=== PATIENT | female | born 1970 ===

== ENCOUNTER 2017-04-20 13:04 | Emergency (ER) | payer OTHER ==
[2017-04-20 13:05] VITALS: BMI 27.8
[2017-04-20 13:22] VITALS: TEMP 98.6
--- NOTE | 2017-04-20 14:03 | ED PDOC ---
Arrival/HPI - General Historian: Patient - History of Present Illness Time/Duration: 1 week Symptom Onset: Gradual Symptom Course: Unchanged Severity Level: 3 Activities at Onset: Rest Context: Home <Jalen Zhang - Last Filed: 04/20/17 14:47> <MichellemagaliejerardoVeronica Melisa - Last Filed: 04/20/17 15:53> - General Chief Complaint: Anxiety Time Seen by Provider: 04/20/17 13:37 - History of Present Illness Narrative History of Present Illness (Text): 04/20/17 13:59 This is a 46 year old female with a past medical history of bulging discs who presents to the [facility] complaining of "hot flashes" for one week. The patient states that this is the first time experiencing this sensation. She reports starting to sweat under both breasts, both arms, and on her face. She denies any precipitating factors prior to the events. She reports feeling better after placing herself in front of the air conditioner. She denies any chest pain, shortness of breath, nausea, vomiting, fevers, chills , lightheadedness, dizziness, vaginal bleeding or any other complaints. (Jalen Zhang) Past Medical History - Provider Review Nursing Documentation Reviewed: Yes - Infectious Disease Hx of Infectious Diseases: None - Tetanus Immunization Tetanus Immunization: Unknown - Reproductive Menopause: No - Cardiac Hx Cardiac Disorders: No - Pulmonary Hx Respiratory Disorders: Yes Hx Asthma: Yes - Neurological Hx Neurological Disorder: No - HEENT Hx HEENT Disorder: No - Renal Hx Renal Disorder: No - Endocrine/Metabolic Hx Endocrine Disorders: No - Hematological/Oncological Hx Blood Disorders: No - Integumentary Hx Dermatological Disorder: No - Musculoskeletal/Rheumatological Hx Arthritis: Yes Hx Herniated Disk: Yes - Gastrointestinal Hx Gastrointestinal Disorders: No - Genitourinary/Gynecological Hx Genitourinary Disorders: No - Psychiatric Hx Anxiety: No Hx Bipolar Disorder: No Hx Depression: No Hx Post Traumatic Stress Disorder: No Hx Schizophrenia: No Hx Substance Use: Yes (Marijuana, cocaine) - Surgical History Hx Section: Yes Hx Hysterectomy: Yes - Anesthesia Hx Anesthesia: Yes Hx Anesthesia Reactions: No Hx Malignant Hyperthermia: No - Suicidal Assessment Feels Threatened In Home Enviroment: No <Jalen Zhang - Last Filed: 04/20/17 14:47> Family/Social History - Physician Review Nursing Documentation Reviewed: Yes Family/Social History: Hypertension Smoking Status: medical Hx Alcohol Use: Yes Hx Substance Use: Yes (Marijuana, cocaine) Substance used: cocaine Hx Substance Use Treatment: No <Jalen Zhang - Last Filed: 04/20/17 14:47> Allergies/Home Meds <Jalen Zhnag - Last Filed: 04/20/17 14:47> <RamónVeronica Melisa - Last Filed: 04/20/17 15:53> Allergies/Adverse Reactions: Allergies No Known Allergies Allergy (Verified 04/20/17 13:17) Home Medications: Home Meds Medication Instructions Recorded Confirmed Hydrocodone/Acetaminophen [Lortab 1 tab PO Q6 PRN 09/19/15 04/20/17 10/325 325 mg-10 mg] Morphine [Morphine Extended 30 mg PO TID 04/20/17 04/20/17 Release Tab] Review of Systems - Review of Systems Constitutional: Normal, Other (hot flashes). absent: Weight Change, Fevers Eyes: Normal. absent: Photophobia, Eye Pain ENT: Normal. absent: Hearing Changes, Tinnitus, Epistaxis Respiratory: Normal. absent: SOB, Cough, Sputum, Wheezing Cardiovascular: Normal. absent: Chest Pain, Palpitations, Syncope Gastrointestinal: Normal. absent: Abdominal Pain, Nausea, Vomiting, Hematochezia Genitourinary Female: Normal. absent: Urine Output Changes, Vaginal Bleeding, Vaginal Discharge Musculoskeletal: Normal. absent: Back Pain Neurological: Normal. absent: Headache, Dizziness, Seizure Endocrine: Other (reports hot flashes for 1 week.). absent: Polyuria, Polydipsia Hemo/Lymphatic: Normal. absent: Easy Bleeding, Easy Bruising <Jalen Zhang - Last Filed: 04/20/17 14:47> Physical Exam Vital Signs Reviewed: Yes Temperature: Afebrile Blood Pressure: Normal Pulse: Regular Respiratory Rate: Normal Appearance: Positive for: Well-Appearing, Non-Toxic, Other (slightly anxious at bedside) Pain Distress: None Mental Status: Positive for: Alert and Oriented X 3 - Systems Exam Head: Present: Atraumatic, Normocephalic Pupils: Present: PERRL Extroacular Muscles: Present: EOMI Conjunctiva: Present: Normal Mouth: Present: Moist Mucous Membranes Neck: Present: Normal Range of Motion. No: JVD, Lymphadenopathy Respiratory/Chest: Present: Clear to Auscultation, Good Air Exchange. No: Respiratory Distress, Accessory Muscle Use, Wheezes Cardiovascular: Present: Regular Rate and Rhythm, Normal S1, S2. No: Tachycardic, Bradycardic Abdomen: Present: Normal Bowel Sounds. No: Tenderness, Distention, Peritoneal Signs, Rebound, Guarding Upper Extremity: Present: Normal Inspection. No: Cyanosis, Edema, Swelling, Erythema Lower Extremity: Present: Normal Inspection. No: Edema Neurological: Present: CN II-XII Intact, Speech Normal Skin: Present: Dry, Normal Color. No: Warm, Rashes, Cold, Pale Lymphatic: No: Cervical Adenopathy Psychiatric: Present: Alert, Oriented x 3, Normal Insight, Anxious <Jalen Zhang - Last Filed: 04/20/17 14:47> Medical Decision Making <Jalen Zhang - Last Filed: 04/20/17 14:47> <Veronica Melgar - Last Filed: 04/20/17 15:53> ED Course and Treatment: 04/20/17 14:08 This is a 49 year old female with a past medical history of bulging discs who presents to the [facility] complaining of hot flashes for one week. The patient was ordered lab work including: cbc, cmp, thyroid function tests. Patient will be re-evaluated after lab work returns. Patients states she would have gone to her PMD Dr. Frost in [place] but he is out of town until Wednesday. Patient has an appointment with Dr. Frost on WednesdayApril 27 for her hot flashes. (Jalen Zhang) A 46 year old female with "hot flashes" for one week. In agreement with resident note, which includes further HPI details. Patient was seen and evaluated with resident, came up with plan and treatment together. 04/20/17 15:52 CBC and CMP WNL. Thyroid studies WNL. Patient has PMD follow-up (Veronica eMlgar) - Lab Interpretations Lab Results: 04/20/17 14:17 04/20/17 14:17 Lab Results 04/20/17 14:17: Thyroxine (T4) 9.4, Total T3 1.41, TSH 3rd Generation 2.74 04/20/17 14:17: Sodium 141, Potassium 3.6, Chloride 104, Carbon Dioxide 28, Anion Gap 13, BUN 14, Creatinine 0.7, Est GFR ( Amer) > 60, Est GFR (Non- Af Amer) > 60, Random Glucose 89, Calcium 8.9, Total Bilirubin 0.5, AST 37, ALT 46, Alkaline Phosphatase 67, Total Protein 7.3, Albumin 4.2, Globulin 3.0, Albumin/Globulin Ratio 1.4 04/20/17 14:17: WBC 6.5 D, RBC 4.52, Hgb 13.3, Hct 38.5, MCV 85.2, MCH 29.4, MCHC 34.5, RDW 13.4, Plt Count 215, MPV 9.6, Gran % 62.7, Lymph % (Auto) 28.6, Hawkins % (Auto) 7.8 H, Eos % (Auto) 0.6 L, Baso % (Auto) 0.3, Gran # 4.10, Lymph # 1.9, Hawkins # 0.5, Eos # 0.0, Baso # 0.02 <Jalen Zhang - Last Filed: 04/20/17 14:47> - PA / OBSTETRICS GYN / Resident Statement / has reviewed & agrees with the documentation as recorded. MD/ has examined the patient and agrees with the treatment plan. - Scribe Statement The provider has reviewed the documentation as recorded by the Scribe <Veronica Melgar - Last Filed: 04/20/17 15:53> - Scribe Statement Joanne Sexton Provider Scribe Attestation: All medical record entries made by the Scribe were at my direction and personally dictated by me. I have reviewed the chart and agree that the record accurately reflects my personal performance of the history, physical exam, medical decision making, and the department course for this patient. I have also personally directed, reviewed, and agree with the discharge instructions and disposition. (Veronica Melgar) Disposition/Present on Arrival - Present on Arrival Any Indicators Present on Arrival: No History of DVT/PE: No History of Uncontrolled Diabetes: No Urinary Catheter: No History of Decub. Ulcer: No History Surgical Site Infection Following: None <Jalen Zhang - Last Filed: 04/20/17 14:47> - Present on Arrival Any Indicators Present on Arrival: No - Disposition Have Diagnosis and Disposition been Completed?: Yes Disposition Time: 15:53 Patient Plan: Discharge <Veronica Melgar - Last Filed: 04/20/17 15:53> - Disposition Diagnosis: Hot flashes Disposition: HOME/ ROUTINE Patient Problems: Current Active Problems Problem Status Onset Hot flashes Acute Condition: GOOD Additional Instructions: Follow up with Dr. Brown as scheduled. Return to ED if condition worsens. Referrals: Trudi Brown MD [Primary Care Provider] - Follow up with primary Forms: [employer] (Bengali)
[2017-04-20 14:23] LABS: BASO # 0.02 K/mm3 (0.0-2.0); BASO % 0.3 % (0.0-3.0); EOS % 0.6 % (1.5-5.0); GRAN % 62.7 % (50.0-68.0); HEMOGLOBIN 13.3 g/dL (12.0-16.0); LYMPH # 1.9 (1.2-3.4); LYMPH % 28.6 % (22.0-35.0); MEAN CELL VOLUME 85.2 fl (80.0-105.0); MEAN CORPUSCULAR HEMOGLOBIN 29.4 pg (25.0-35.0); MEAN CORPUSCULAR HGB CONC 34.5 g/dl (31.0-37.0); MEAN PLATELET VOLUME 9.6 fl (7.0-11.0); MONO # 0.5 (0.1-0.6); MONO % 7.8 % (1.0-6.0); PLATELET COUNT 215 10^3/uL (120.0-450.0); RBC 4.52 10^6/uL (3.5-6.1); RED CELL DISTRIBUTION WIDTH 13.4 % (11.5-14.5); WHITE BLOOD COUNT 6.5 10^3/ul (4.5-11.0)
[2017-04-20 14:39] LABS: ALB/GLOB RATIO 1.4 (1.1-1.8); ALBUMIN 4.2 g/dL (3.0-4.8); ALT/SGPT 46 U/L (7-56); AST/SGOT 37 U/L (15-39); BLOOD UREA NITROGEN 14 mg/dL (7-21); CALCIUM 8.9 mg/dL (8.4-10.5); GFR AFRICAN-AMERICAN > 60; GFR NON-AFRICAN AMERICAN > 60
[2017-04-20 15:36] LABS: T4 9.4 ug/dL (5.5-11.0)
[2017-04-20 15:49] LABS: T3 1.41 ng/mL (0.97-1.69)
[2017-04-20 16:00] VITALS: BP 142/52; PULSE 71; RESP 18; O2SAT 98
== END 2017-04-20 16:01 | disposition home or self-care (01) ==
LOC: ED 13:04
DX: N95.1 Menopausal and female climacteric states (principal)

== ENCOUNTER 2018-04-06 08:40 | Emergency (ER) | payer OTHER ==
[2018-04-06 08:41] VITALS: BMI 27.8
[2018-04-06 08:57] VITALS: RESP 18
[2018-04-06] MEDS ORDERED: Amoxicillin-Clav 875-125 mg Tab PO STA (09:29)
--- NOTE | 2018-04-06 09:34 | ED PDOC ---
Arrival/HPI - General Chief Complaint: ENT Problem Time Seen by Provider: 04/06/18 09:28 Historian: Patient - History of Present Illness Narrative History of Present Illness (Text): 04/06/18 47 yo female w/o significant PMHx come in for evaluation of cold sx for past 3 days associated with nasal congestion, " sinus pressure", Right earache, associated with low grade fever. Pt admits, similar sx to kids. Otherwise, pt denies high fever, severe headache, dizziness, ear discharges, vertigo, drooling , neck pain, CP, SOB, dyspnea, palpitation, wheezing, abd. pain, N/V, back pain , UTI sx. Ambulate to Ed for evaluation, not in any apparent distress. Past Medical History - Provider Review Nursing Documentation Reviewed: Yes - Travel History Have you recently traveled outside [place] w/in the past 3 mons?: No - Infectious Disease Hx of Infectious Diseases: None - Tetanus Immunization Tetanus Immunization: Unknown - Cardiac Hx Cardiac Disorders: No - Pulmonary Hx Respiratory Disorders: Yes Hx Asthma: Yes - Neurological Hx Neurological Disorder: No - HEENT Hx HEENT Disorder: No - Renal Hx Renal Disorder: No - Endocrine/Metabolic Hx Endocrine Disorders: No - Hematological/Oncological Hx Blood Disorders: No - Integumentary Hx Dermatological Disorder: No - Musculoskeletal/Rheumatological Hx Arthritis: Yes Hx Herniated Disk: Yes - Gastrointestinal Hx Gastrointestinal Disorders: No - Genitourinary/Gynecological Hx Genitourinary Disorders: No - Psychiatric Hx Anxiety: No Hx Bipolar Disorder: No Hx Depression: No Hx Post Traumatic Stress Disorder: No Hx Schizophrenia: No Hx Substance Use: Yes (Marijuana, cocaine) - Surgical History Hx Section: Yes Hx Hysterectomy: Yes - Anesthesia Hx Anesthesia: Yes Hx Anesthesia Reactions: No Hx Malignant Hyperthermia: No - Suicidal Assessment Feels Threatened In Home Enviroment: No Family/Social History - Physician Review Nursing Documentation Reviewed: Yes Family/Social History: No Known Family HX Smoking Status: Never Smoked Hx Alcohol Use: Yes Frequency of alcohol use: Socially Hx Substance Use: Yes (Marijuana, cocaine) Substance used: cocaine Hx Substance Use Treatment: No Allergies/Home Meds Allergies/Adverse Reactions: Allergies No Known Allergies Allergy (Verified 04/06/18 08:52) Home Medications: Home Meds Medication Instructions Recorded Confirmed Morphine [Morphine Extended 30 mg PO TID 04/20/17 04/06/18 Release Tab] Review of Systems - Review of Systems Constitutional: Fatigue, Fevers (low grade) Eyes: Normal ENT: Rhinorrhea, Sinus Congestion. absent: Tinnitus, Sore Throat Respiratory: Normal. absent: SOB, Cough, Sputum Cardiovascular: Normal. absent: Chest Pain, Palpitations, Edema Gastrointestinal: Normal. absent: Abdominal Pain, Nausea, Vomiting Genitourinary Female: Normal. absent: Dysuria, Frequency Musculoskeletal: Normal. absent: Back Pain Skin: Normal. absent: Rash Neurological: Normal Endocrine: Normal Hemo/Lymphatic: Normal. absent: Adenopathy Psychiatric: Normal Physical Exam Vital Signs Reviewed: Yes Vital Signs Temp Pulse Resp BP Pulse Ox 04/06/18 08:48 98.7 F 81 18 135/92 H 97 Temperature: Afebrile Blood Pressure: Normal Pulse: Regular Respiratory Rate: Normal Appearance: Positive for: Well-Appearing, Non-Toxic, Comfortable Pain Distress: Mild Mental Status: Positive for: Alert and Oriented X 3 - Systems Exam Head: Present: Normocephalic Conjunctiva: Present: Normal Ears: Present: Normal (Left), Fluid (Right TM fluid level noted). No: TM Perf Mouth: Present: Moist Mucous Membranes, Normal Lips. No: Drooling Pharnyx: Present: ERYTHEMA (mild B/L), Other (uvula midline, no edema.). No: EXUDATE, TONSILS ENLARGED Nose (Internal): Present: Edematous, Clear Mucous, Other (mild B/L paranasal tenderness, no edema, no erythema.) Neck: Present: Normal Range of Motion, Trachea Midline. No: Meningeal Signs, Lymphadenopathy Respiratory/Chest: Present: Clear to Auscultation, Good Air Exchange. No: Respiratory Distress, Accessory Muscle Use Cardiovascular: Present: Regular Rate and Rhythm, Normal S1, S2. No: Murmurs Abdomen: No: Tenderness, Distention, Peritoneal Signs, Rebound, Guarding Back: No: CVA Tenderness Upper Extremity: Present: Normal Inspection, Normal ROM. No: Swelling Lower Extremity: Present: Normal Inspection. No: Edema Neurological: Present: GCS=15, Speech Normal Skin: Present: Warm, Dry, Normal Color. No: Rashes Psychiatric: Present: Alert, Oriented x 3, Normal Insight, Normal Concentration Medical Decision Making ED Course and Treatment: 04/06/18 09:55 On re-evaluation, pt is afebrile, hemodynamicaly stable. NOn-toxic. PulseOx 97% RA ENT: exam c/w serous otitis media Right ear, tenderness over B/L paranasal sinuses. No edema, no erythema. Neck: Supple, (-) meningeal sign. Lungs: CTA B/L, BS equal B/L. CVS: (+)S1S2, reg. Abd: benign. back: (-) CVA tenderness Neurologicaly intact. Pt advised on course of ds. ref. to f/u with PMD, ENT in 2-3 days for re-evaluation. return to ED if any worsening or new changes. - Medication Orders Current Medication Orders: Discontinued Medications Acetaminophen (Tylenol 325mg Tab) 975 mg PO STAT STA Stop: 04/06/18 09:29 Last Admin: 04/06/18 09:44 Dose: 975 mg MAR Pain/Vitals Document 04/06/18 09:44 EWO (Rec: 04/06/18 09:45 EWO [id number]) Pain Reassessment Is This A Pain ReAssessment? No Sleep Is patient sleeping during reassessment? No Presence of Pain Presence of Pain Yes Pain Scale Used Pain Scale Used Numeric Location Pain Location Body Site Throat Amoxicillin/Clavulanate Potassium (Augmentin 875 Mg-125 Mg Tab) 1 tab PO STAT STA PRN Reason: Protocol Stop: 04/06/18 09:30 Last Admin: 04/06/18 09:44 Dose: 1 tab Prednisone (Prednisone Tab) 60 mg PO STAT STA Stop: 04/06/18 09:42 Last Admin: 04/06/18 09:45 Dose: Disposition/Present on Arrival - Present on Arrival Any Indicators Present on Arrival: No History of DVT/PE: No History of Uncontrolled Diabetes: No Urinary Catheter: No History of Decub. Ulcer: No History Surgical Site Infection Following: None - Disposition Have Diagnosis and Disposition been Completed?: Yes Diagnosis: Otitis media, Sinusitis Disposition: HOME/ ROUTINE Disposition Time: 09:29 Patient Plan: Discharge Patient Problems: Current Active Problems Problem Status Onset Otitis media Acute Sinusitis Acute Condition: STABLE Discharge Instructions (ExitCare): Ear Infections (Otitis Media), Sinusitis, Adult (DC) Additional Instructions: Encourage fluids Take medication as prescribed Follow up with PMD in 2-3 days for re-evaluation. return to ED if any worsening or new changes. Prescriptions: Amoxicillin/Clavulanate [Augmentin 875 MG-125 MG] 1 tab PO BID #14 tab Loratadine 10 mg PO DAILY #14 capsule Prednisone [Deltasone] 40 mg PO DAILY #6 tablet Referrals: Trdui Brown MD [Primary Care Provider] - Follow up with primary Forms: [employer] (Korean)
[2018-04-06 09:57] VITALS: BP 123/80; PULSE 78; TEMP 98.6; O2SAT 99
== END 2018-04-06 09:56 | disposition home or self-care (01) ==
LOC: ED 08:40
DX: J32.9 Chronic sinusitis, unspecified (principal); H66.90 Otitis media, unspecified, unspecified ear

== ENCOUNTER 2019-02-03 05:49 | Emergency (ER) | payer OTHER ==
[2019-02-03 05:50] VITALS: BMI 32.1
[2019-02-03 05:56] VITALS: TEMP 98.4
--- NOTE | 2019-02-03 06:09 | ED PDOC ---
Arrival/HPI - General Chief Complaint: GI Problem Historian: Patient - History of Present Illness Narrative History of Present Illness (Text): 02/03/19 06:06 Pt is a 48 yo female with a PMH of asthma, and poly substance abuse who presents to the ED complaining of nausea, vomiting, and diarrhea for the past day. She states she and her ate homemade nachos yesterday and began vomiting 20 mins after finishing. Pt reports 7/10 abdominal pain. Denies blood in the stool, chest pain, SOB. Time/Duration: 24 hours Symptom Onset: Sudden Symptom Course: Unchanged Quality: Aching Severity Level: 7 Activities at Onset: Rest Past Medical History - Infectious Disease Hx of Infectious Diseases: None - Tetanus Immunization Tetanus Immunization: Unknown - Cardiac Hx Cardiac Disorders: No - Pulmonary Hx Respiratory Disorders: Yes Hx Asthma: Yes - Neurological Hx Neurological Disorder: No - HEENT Hx HEENT Disorder: No - Renal Hx Renal Disorder: No - Endocrine/Metabolic Hx Endocrine Disorders: No - Hematological/Oncological Hx Blood Disorders: No - Integumentary Hx Dermatological Disorder: No - Musculoskeletal/Rheumatological Hx Arthritis: Yes Hx Herniated Disk: Yes - Gastrointestinal Hx Gastrointestinal Disorders: No - Genitourinary/Gynecological Hx Genitourinary Disorders: No - Psychiatric Hx Anxiety: No Hx Bipolar Disorder: No Hx Depression: No Hx Post Traumatic Stress Disorder: No Hx Schizophrenia: No Hx Substance Use: Yes (Marijuana, cocaine) - Surgical History Hx Section: Yes Hx Hysterectomy: Yes - Anesthesia Hx Anesthesia: Yes Hx Anesthesia Reactions: No Hx Malignant Hyperthermia: No - Suicidal Assessment Feels Threatened In Home Enviroment: No Family/Social History Family/Social History: Neoplasm/Cancer Smoking Status: Never Smoked Hx Alcohol Use: Yes Frequency of alcohol use: Socially Hx Substance Use: Yes (Marijuana, cocaine) Substance used: cocaine Hx Substance Use Treatment: No Allergies/Home Meds Allergies/Adverse Reactions: Allergies No Known Allergies Allergy (Verified 04/06/18 08:52) Review of Systems - Review of Systems Constitutional: Normal Eyes: Normal ENT: Normal Respiratory: Normal Cardiovascular: Normal Gastrointestinal: Abdominal Pain, Diarrhea, Nausea, Vomiting Musculoskeletal: Normal Skin: Normal Neurological: Normal Endocrine: Normal Hemo/Lymphatic: Normal Psychiatric: Normal Physical Exam Vital Signs Reviewed: Yes Vital Signs Temp Pulse Resp BP Pulse Ox 02/03/19 05:50 98.4 F 88 20 146/76 97 Temperature: Afebrile Blood Pressure: Normal Pulse: Regular Respiratory Rate: Normal Appearance: Positive for: Well-Appearing Mental Status: Positive for: Alert and Oriented X 3 - Systems Exam Head: Present: Atraumatic, Normocephalic Pupils: Present: PERRL Extroacular Muscles: Present: EOMI Mouth: Present: Moist Mucous Membranes Neck: Present: Normal Range of Motion Respiratory/Chest: Present: Clear to Auscultation, Good Air Exchange Cardiovascular: Present: Regular Rate and Rhythm, Normal S1, S2 Abdomen: Present: Tenderness Upper Extremity: Present: Normal Inspection Lower Extremity: Present: Normal Inspection Neurological: Present: GCS=15, CN II-XII Intact Skin: Present: Warm, Dry, Normal Color Psychiatric: Present: Alert, Oriented x 3 Medical Decision Making ED Course and Treatment: 02/03/19 06:11 zofran for nausea 02/03/19 06:44 pt for discharge Pt seen, examined, assessment and plan discussed with Dr Kody Riley PGY1 - Medication Orders Current Medication Orders: Discontinued Medications Ondansetron HCl (Zofran Inj) 4 mg IVP STAT STA Stop: 02/03/19 06:01 Disposition/Present on Arrival - Present on Arrival Any Indicators Present on Arrival: No History of DVT/PE: No History of Uncontrolled Diabetes: No Urinary Catheter: No History of Decub. Ulcer: No History Surgical Site Infection Following: None - Disposition Have Diagnosis and Disposition been Completed?: Yes Diagnosis: Viral gastroenteritis Disposition: HOME/ ROUTINE Disposition Time: 06:34 Patient Plan: Discharge Patient Problems: Current Active Problems Problem Status Onset Viral gastroenteritis Acute Condition: GOOD Discharge Instructions (ExitCare): Viral Gastroenteritis, Adult (DC) Prescriptions: Ondansetron [Zofran] 4 mg PO Q8H #12 tab Referrals: Trudi Brown MD [Primary Care Provider] - Follow up with primary Forms: [employer] (Maltese)
[2019-02-03 06:50] VITALS: BP 145/75; PULSE 67; RESP 12; O2SAT 95
== END 2019-02-03 06:49 | disposition home or self-care (01) ==
LOC: ED 05:49
DX: A08.4 Viral intestinal infection, unspecified (principal)
CPT/HCPCS: 96374; 99284; J2405